=== PATIENT | male | born 1980 | race Caucasian/White ===

== ENCOUNTER 2023-03-23 14:07 | Outpatient (OUT) | payer MEDICAID, SELFPAY ==
[2023-03-23 15:15] LABS: Amphetamine Screen Urine POSITIVE (NEGATIVE); Benzodiazepines Screen Urine NEGATIVE (NEGATIVE); Cannabinoid Screen Urine POSITIVE (NEGATIVE); Cocaine Screen Urine NEGATIVE (NEGATIVE); Methamphetamines Screen Urine POSITIVE (NEGATIVE); Opiate Screen Urine NEGATIVE (NEGATIVE); Phencyclidine Screen Urine NEGATIVE (NEGATIVE)
[2023-03-23 15:16] LABS: Barbiturates Screen Urine NEGATIVE (NEGATIVE); Buprenorphine Screen Urine POSITIVE (NEGATIVE); Methadone Screen Urine NEGATIVE (NEGATIVE); Oxycodone Screen Urine NEGATIVE (NEGATIVE); Tricyclic Antidepressant Urine NEGATIVE (NEGATIVE)
[2023-03-26 18:09] LABS: Amphetamine Positive (.); Amphetamine Conf, MS, UR >3000 ng/mL (Cutoff=500); Amphetamines Positive (.); Buprenorphine Positive (.); Buprenorphine Conf, MS, UR 320 ng/mL (Cutoff=10); Cannabinoid Positive (.); Carboxy THC Conf, MS, UR >750 ng/mL (Cutoff=10); Methamphetamine Positive (.); Methamphetamine Conf, MS, UR >3000 ng/mL (Cutoff=500); Norbuprenorphine Positive (.); Norbuprenorphine Conf, MS,UR 490 ng/mL (Cutoff=10)
== END 2023-03-23 14:08 | disposition home or self-care (01) ==
LOC: LAB 14:10
DX: F11.20 Opioid dependence, uncomplicated (principal)
CPT/HCPCS: 80299; 80307; 80326; 80349